=== PATIENT | female | born 1990 | race Caucasian/White ===

== ENCOUNTER 2017-03-25 10:33 | Emergency (ER) | payer BC, MEDICAID ==
[~2017-03-25] VITALS: Ht 157.5 cm; Wt 66.6 kg
[~2017-03-25 10:33] MED LIST: OXYC-302 PO; PREN1TAB52 PO
[2017-03-25] MEDS ORDERED: ONDANSETRON 2MG/ML, 2ML IVPush ONE (11:30)
[2017-03-25] MEDS ORDERED: SODIUM CHLORIDE FLUSH 10ML SYR IVF ONE (11:30)
[2017-03-25] MEDS ORDERED: MORPHINE SULFATE 4 MG/ML, 1ML ONE ×2 (11:38→12:20)
[2017-03-25] MEDS ORDERED: ONDANSETRON 2MG/ML, 2ML ONE (11:38)
[2017-03-25] MEDS: MORPHINE SULFATE 4 MG/ML, 1ML IVPush PRN ×2 (11:39→12:21)
[2017-03-25 12:16] LABS: PATH.CAST-FLAG NOT PRESENT; SPERM-FLAG NOT PRESENT; SRC-FLAG NOT PRESENT; XTAL-FLAG NOT PRESENT; YLC-FLAG NOT PRESENT
[2017-03-25 12:18] LABS: HEMATOCRIT 40.4 % (34.6-47.8); HEMOGLOBIN 13.7 g/dL (11.7-16.4)
[2017-03-25 12:29] LABS: ASPARTATE AMINO TRANSFERASE 10 U/L (15-37); BLOOD UREA NITROGEN 11 mg/dL (7-18)
[2017-03-25] MEDS ORDERED: KETOROLAC 30 MG/1 ML IVPush ONE (13:30)
[2017-03-25] MEDS ORDERED: KETOROLAC 30 MG/1 ML ONE (13:43)
[2017-03-25 14:28] VITALS: BP 109/66
== END 2017-03-25 14:29 | disposition home or self-care (01) ==
LOC: ED 12:24
DX: N20.2 Calculus of kidney with calculus of ureter (principal); Z90.49 Acquired absence of other specified parts of digestive tract
CPT/HCPCS: 36415; 74176; 80053; 81001; 84703; 85025; 87086; 96374; 96375; 96376; 99285; J1885; J2405